=== PATIENT | female | born 1980 | race Caucasian/White ===

== ENCOUNTER 2021-09-15 19:54 | Emergency (ER) | payer BC, SELFPAY ==
--- NOTE | ~2021-09-15 | XR_ITS ---
EXAMINATION: XR lumbar spine 2-3V DATE: 09/15/2021 21:43 INDICATION: Low back pain. TECHNIQUE: 3 views of lumbar spine were obtained. COMPARISON: None. FINDINGS: There is 3 degrees dextrocurvature of lumbar spine. Vertebral body heights are normal. Ther e is mildly decreased disc height at L3-L4 and L4-L5. There are endplate osteophytes at multiple leve ls. The facet joints are unremarkable. Surgical clips in the right upper quadrant are likely from cho lecystectomy. IMPRESSION: 1. Mild lumbar spondylosis. Reviewed, dictated and finalized at location A. IMPRESSION: 1. Mild lumbar spondylosis.
[2021-09-15 20:20] VITALS: BP 123/80; PULSE 67; RESP 18; TEMP 36.4; O2SAT 98
--- NOTE | 2021-09-15 20:53 | ED.BACK ---
HPI - Back Pain/Injury General Chief Complaint: Back Pain/Injury Stated Complaint: back pain Time Seen by Provider: 09/15/21 20:52 History of Present Illness HPI Narrative: 41-year-old female presents to the emergency room for evaluation of acute on chronic low back pain. Patient endorses a nontraumatic and nonradiating lower back pain that is worse with rotation and lateral bend. States she was in the shower earlier today and bent forward and then experienced of the low back pain. Denies taking any pain medications to relieve her symptoms. Reports pain radiates into her lower abdomen. Patient also endorses long history of constipation, states she has not taking her medications to manage her constipation. States her last bowel movement was yesterday, and was typical of her small hard stools. Denies saddle anesthesia Related Data Allergies Allergy/AdvReac Type Severity Reaction Status Date / Time Penicillins Allergy Unknown Hives Verified 09/15/21 20:23 codeine Allergy Hives Verified 09/15/21 20:23 Review of Systems Review of Systems: CONSTITUTIONAL: Denies fever, chills, or sweats. EYES: Denies visual changes, redness, or discharge. ENT: Denies rhinorrhea, congestion, sore throat, or otalgia. CARDIOVASCULAR: Denies chest pain, palpitations, or edema. RESPIRATORY: Denies cough or dyspnea. GASTROINTESTINAL: Reports constipation GENITOURINARY: Denies dysuria or hematuria. SKIN: Denies rash or itching. MUSCULOSKELETAL: Reports low back pain NEUROLOGIC: Denies headache, numbness, dizziness, or weakness. PSYCHIATRIC: Denies anxiety or depression. Exam Narrative: GENERAL: Well-appearing, well-nourished, no physical limitations, and in no acute distress. HEAD: Normocephalic, atraumatic. EYES: Conjunctivae normal, PERRLA and EOMI. CHEST: Clear to auscultation. No respiratory distress. No wheezes rales or rhonchi. No tenderness. HEART: Regular rate and rhythm. No murmur heard. Normal peripheral pulses. ABDOMEN: Soft, nontender, nondistended, normal active bowel sounds. BACK: No CVA tenderness; midline lumbar tenderness that extends over the bilateral thoracolumbar fascia, no step-offs, no bony abnormality; LROM with bilateral rotation and lateral bend EXTREMITIES: Normal range of motion. No edema. No clubbing or cyanosis SKIN: Warm, dry, no rash. No noted wounds NEURO: No focal deficits. Alert and oriented x3. MAEW. CN's II-XI intact bilaterally, normal gait PSYCH: Cooperative. Normal mood and affect. Course Vital Signs Vital signs: Vital Signs Temperature 36.4 C 09/15/21 20:20 Pulse Rate 67 09/15/21 20:20 Respiratory Rate 18 09/15/21 20:20 Blood Pressure 123/80 09/15/21 20:20 Pulse Oximetry 98 09/15/21 20:20 Oxygen Delivery Room Air 09/15/21 20:20 Temperature 36.4 C 09/15/21 20:20 Pulse Rate 67 09/15/21 20:20 Respiratory Rate 18 09/15/21 20:20 Blood Pressure 123/80 09/15/21 20:20 Pulse Oximetry 98 09/15/21 20:20 Oxygen Delivery Room Air 09/15/21 20:20 MDM - Back Pain/Injury Lab Data Labs: Lab Results 09/15/21 Range/Units 22:38 Urine Color Yellow (Yellow) Urine Appearance Slightly cloudy (Clear) Urine pH 5.5 (5.0-9.0) Ur Specific [place] 1.020 (1.001-1.035) Urine Protein Trace (Negative) mg/dL Urine Glucose (UA) Negative (Negative) mg/dL Urine Ketones Negative (Negative) mg/dL Ur Blood (Man) 3+ H (Negative) Urine Nitrate Negative (Negative) Urine Bilirubin Negative (Negative) Urine Urobilinogen 0.2 (<2.0) mg/dL Leukocyte Esterase Rfl 1+ H (Negative) ANNE/UL Urine RBC >75 H (0-2) /hpf Urine WBC 31-50 H /hpf Ur Squamous Epith Cells Occasional (Few) /hpf Urine Bacteria Trace /hpf Urine Mucus Rare /lpf Discharge Plan Discharge Clinical Impression: Strain of lumbar region, UTI (urinary tract infection) Patient Disposition: Home, Self-Care Condition: Stable Instructions: Antibiotic Form, Urinary
[2021-09-15] MEDS: KETOROLAC (*BKC) 60 MG/2 ML VIAL IM (22:32)
[2021-09-15 22:47] LABS: Appearance Urine Slightly Cloudy (Clear); Bilirubin Urine Negative (Negative); Blood Urine 3+ (Negative); Color Urine Yellow (Yellow); Glucose Urine UA Negative (Negative); Ketones Urine Negative (Negative); Leukocyte Esterase Ur 1+ LEU/UL (Negative); Nitrate Urine Negative (Negative); Protein Urine Trace mg/dL (Negative); Urobilinogen Urine 0.2 mg/dL (<2.0); pH Urine 5.5 (5.0-9.0)
[2021-09-15 22:51] LABS: Bacteria Urine Trace /hpf; Mucus Urine Rare /lpf; RBC Urine >75 /hpf (0-2); Squamous Epithelial Cell Urine Occasional /hpf (Few); WBC Urine 31-50 /hpf
[2021-09-15 22:52] LABS: Add Urine Microscopic? YES
[2021-09-15 23:40] VITALS: PULSE 64; RESP 18; O2SAT 98
== END 2021-09-15 23:40 | disposition home or self-care (01) ==
PROVIDERS: Emergency Provider Nurse Practitioner Family; PCP Nurse Practitioner Family
DX: N39.0 Urinary tract infection, site not specified (principal); S39.012A Strain of muscle, fascia and tendon of lower back, initial encounter; X50.9XXA Other and unspecified overexertion or strenuous movements or postures, initial encounter
CPT/HCPCS: 72100; 81001; 87086; 87088; 96372; 99283; J1885

== ENCOUNTER 2022-01-31 02:02 | Emergency (ER) | payer BC, SELFPAY ==
[2022-01-31 02:04] VITALS: BP 160/105; PULSE 93; RESP 18; TEMP 36.5; O2SAT 97
[2022-01-31] MEDS: hydrOXYzine HCL 25 MG TABLET PO (02:33)
--- NOTE | 2022-01-31 02:54 | ED.GENADULT ---
HPI - General Adult General Chief complaint: Unspecified Stated complaint: unspecified Time Seen by Provider: 01/31/22 02:14 Source: patient Mode of arrival: ambulatory Limitations: no limitations History of Present Illness HPI narrative: 38-year-old patient presents today with concerns of right arm pain that she has had for 2 months and right arm shaking that she noted today. Patient arrives with gross tremor to right arm. States it has been there since after she started work. Patient denies any anxiety, stressful situations at home. Patient denies any history of episodes similar to this in the past. Patient does endorse right arm pain for the last 2 months but has not been seen by her primary. Patient does have a history of hypertension but currently not on medications due to her stopping them because of side effects. Related Data Allergies Allergy/AdvReac Type Severity Reaction Status Date / Time Penicillins Allergy Unknown Hives Verified 09/15/21 20:23 codeine Allergy Hives Verified 09/15/21 20:23 Review of Systems Review of Systems: CONSTITUTIONAL: Denies fever, chills, or sweats. EYES: Denies visual changes, redness, or discharge. ENT: Denies rhinorrhea, congestion, sore throat, or otalgia. CARDIOVASCULAR: Denies chest pain, palpitations, or edema. RESPIRATORY: Denies cough or dyspnea. GASTROINTESTINAL: Denies abdominal pain, nausea, vomiting, or diarrhea. GENITOURINARY: Denies dysuria or hematuria. SKIN: Denies rash or itching. MUSCULOSKELETAL: Gross tremor right upper extremity. Facial twitching. Right arm pain 2 months. Denies back pain, joint pain, or myalgia. NEUROLOGIC: Denies headache, numbness, dizziness, or weakness. PSYCHIATRIC: Denies anxiety or depression. Is Exam Narrative: GENERAL: Well-Appearing, Well-Nourished, and in No Acute Distress. HEAD: Normocephalic, Atraumatic. EYES: PERRLA and EOMI. ENT: Nares Clear, No Rhinorrhea or Epistaxis. Mucous Membranes Moist. NECK: Supple. No Adenopathy or Masses. No Carotid Bruits or JVD CHEST: Clear to Auscultation. No Respiratory Distress. No Wheezes Rales or Rhonchi HEART: Regular Rate and Rhythm. No Murmur Levy. Normal Peripheral Pulses. ABDOMEN: Soft, Nontender, Nondistended, Normal Active Bowel Sounds. EXTREMITIES: Normal Range Of Motion. No Edema. Gross Tremors Noted to Right Upper Extremity. SKIN: Warm, Dry, No Rash. NEURO: No Focal Deficits. Alert and Oriented X3. Facial Twitching Noted after Daughter Stated She Noticed It Today. PSYCH: Normal Mood and Affect. Course Reevaluation(s) Reevaluation #1: Patient resting comfortably in bed. No tremors noted at this time. Patient states that she feels better. Will discharge plan follow-up with primary care physician for further management. Date: 01/31/22 Time: 03:25 Vital Signs Vital signs: Vital Signs Temperature 97.7 F 01/31/22 02:04 Pulse Rate 93 01/31/22 02:04 Respiratory Rate 18 01/31/22 02:04 Blood Pressure 160/105 H 01/31/22 02:04 Pulse Oximetry 97 01/31/22 02:04 Oxygen Delivery Room Air 01/31/22 02:04 Temperature 97.7 F 01/31/22 02:04 Pulse Rate 93 01/31/22 02:04 Respiratory Rate 18 01/31/22 02:04 Blood Pressure 160/105 H 01/31/22 02:04 Pulse Oximetry 97 01/31/22 02:04 Oxygen Delivery Room Air 01/31/22 02:04 Medical Decision Making MDM Narrative Medical decision making narrative: 41-year-old female HPI as noted. Patient arrived with complaints of gross tremors to the right upper extremity and some facial twitching that she noted today. Patient states she has had right arm pain for the last 2 months with a gross tremor noted just today. She denied any increased stress or anxiety at home. Tremor noted with movement but after distracting patient for a period of time tremor was gone. But then returned. No other abnormal movements noted until daughter asked about facial twitching then facial twitching was noted. suspect anxiety versus g
[2022-01-31 03:41] VITALS: BP 139/84; PULSE 88; RESP 18; O2SAT 99
== END 2022-01-31 03:42 | disposition home or self-care (01) ==
PROVIDERS: Emergency Provider Nurse Practitioner Family; PCP Nurse Practitioner Family
DX: R25.1 Tremor, unspecified (principal)
CPT/HCPCS: 99283; A9270

== ENCOUNTER 2022-05-12 13:31 | Emergency (ER) | payer BC, SELFPAY ==
[2022-05-12] VITALS (17 sets, daily range): BP systolic 144–169; BP diastolic 74–110; PULSE 60–83; RESP 9–20; TEMP 36.4–36.6; O2SAT 99–100
--- NOTE | ~2022-05-12 | US_ITS ---
EXAMINATION: US pelvic complete DATE: 05/12/2022 20:16 INDICATION: Ovarian torsion, fallopian tube abscess TECHNIQUE: Multiple transabdominal and endovaginal sonographic images of the pelvis were obtained. Tr ansvaginal images were limited by bowel gas. COMPARISON: None. FINDINGS: Uterus: 11.4 x 4.7 x 5.8 cm. Endometrial complex measures 9 mm. Right Ovary: 5.5 x 3.0 x 2.5 cm. Vascular flow is present. Anechoic, avascular 3.2 cm cystic right ov markell lesion, most likely representing a simple ovarian cyst. Left Ovary: 5.0 x 3.3 x 2.3 cm. Vascular flow is present. Hypoechoic circumscribed anechoic structure in the right ovary measuring 2.5 cm, most likely representing a simple ovarian cyst. There is no free fluid in the pelvis. IMPRESSION: 1. The 7.4 cm left ovarian cyst seen in the prior CT was not visualized sonographically, likely parti ally obscured by bowel gas and too high in the pelvis, recommend follow-up CT abdomen and pelvis in 6 -12 months for growth reassessment. 2. The right ovarian lesion seen in the prior CT corresponds to a simple cyst. 3. No sonographic evidence of hydrosalpinx, prior CT findings likely related to adjacent fluid-filled bowel. 4. No sonographic evidence of ovarian torsion. Reviewed, dictated and finalized at location K. IMPRESSION: 1. The 7.4 cm left ovarian cyst seen in the prior CT was not visualized sonogra phically, likely partially obscured by bowel gas and too high in the pelvis, re commend follow-up CT abdomen and pelvis in 6-12 months for growth reassessment. 2. The right ovarian lesion seen in the prior CT corresponds to a simple cyst. 3. No sonographic evidence of hydrosalpinx, prior CT findings likely related to adjacent fluid-filled bowel. 4. No sonographic evidence of ovarian torsion.
--- NOTE | ~2022-05-12 | CT_ITS ---
EXAMINATION: CT abdomen pelvis w con DATE: 05/12/2022 16:42 INDICATION: Diffuse abdominal pain with vomiting and diarrhea TECHNIQUE: Computed tomography (CT) of the abdomen and pelvis was performed with 100 mL Omnipaque-350 intravenous contrast. Automated exposure control and iterative reconstruction technique were employe d. The dose-length product was 948.45 mGy-cm. COMPARISON: None. FINDINGS: Lower thorax: Minimal dependent scar/atelectasis. Liver: Normal. Biliary/Gallbladder: Gallbladder is absent. Minimal prominence of the intrahepatic bile ducts, likely secondary to cholecystectomy Pancreas: No mass or duct dilation. Spleen: Normal. Adrenals:No mass. Kidneys: No mass, stone, or hydronephrosis. GI tract: Distal esophageal and gastric wall edema No small or large bowel dilation. Normal appendix. Mesentery/Peritoneum: No ascites, mass, or free air. Retroperitoneum: No mass. Mild atherosclerotic abdominal aortic and/or arterial calcifications. Pelvis: Decompressed urinary bladder. Normal uterus. Tubular fluid density structure in the left adne xa. 7.4 cm left ovarian cyst. 3.5 cm intermediate density right ovarian lesion. Soft Tissues: Soft tissues and body wall unremarkable. Bones: No acute osseous finding. IMPRESSION: Esophagitis/gastritis. Possible left hydrosalpinx. 7 cm left ovarian cyst. 3.5 cm intermediate densit y right ovarian lesion, possibly a proteinaceous or hemorrhagic cyst. Consider pelvic ultrasound for further evaluation. Reviewed, dictated and finalized at location K. IMPRESSION: Esophagitis/gastritis. Possible left hydrosalpinx. 7 cm left ovarian cyst. 3.5 cm intermediate density right ovarian lesion, possibly a proteinaceous or hemor rhagic cyst. Consider pelvic ultrasound for further evaluation.
--- NOTE | 2022-05-12 14:24 | ED.NAVMDI ---
HPI - Nausea/Vomiting/Diarrhea General Chief complaint: Nausea/Vomiting/Diarrhea Stated complaint: N/V/general pain x3 weeks Time Seen by Provider: 05/12/22 13:57 Source: patient Mode of arrival: ambulatory Limitations: no limitations History of Present Illness HPI Narrative: Patient is 41 years old white female came to the emergency room by private car because of nausea, vomiting and diarrhea for the last 3 weeks. The patient reports vomiting maximum 3 times a day, diarrhea maximum twice a day over the last 3 weeks, associated with general body aches. She denies any fever, chills, urinary symptoms, chest pain, shortness of breath or respiratory symptoms. Patient was seen at [facility], [place], operated by [facility] 3 days ago with a diagnosis of gastroenteritis, was seen by her family physician yesterday and was a scheduled to be seen by green end worker. Patient did not have COVID test 3 weeks ago. Related Data Allergies Allergy/AdvReac Type Severity Reaction Status Date / Time Penicillins Allergy Unknown Hives Verified 09/15/21 20:23 codeine Allergy Hives Verified 09/15/21 20:23 Review of Systems Review of Systems: All systems reviewed & are unremarkable except as noted in HPI and below Exam Narrative: General appearance: Well-developed, well-nourished Skin: Normal color Head: Normocephalic, nontraumatic Eyes: Clear conjunctiva ENT: Oropharynx normal, ears normal, nose normal Neck: Supple, nontender Chest and respiratory: Airway patent, no respiratory distress, no accessory muscle use Heart: Regular rate/rhythm Abdomen: Soft, diffuse tenderness, no guarding or rebound, no organomegaly, quiet bowel sounds Vascular: Normal peripheral pulses, normal capillary refill. Musculoskeletal: Normal range of motion, nontender back Neurologic: Alert and oriented ?3, [employer]ER is normal as tested, no gross motor deficit Course Reevaluation(s) Reevaluation #1: No new changes. Patient was notified about the results of the work-up today and the need to follow-up with green end worker. Agreed Date: 05/12/22 Time: 17:00 Reevaluation #2: Patient care turned over to Dr. caal at shift change, awaiting pelvic ultrasound, disposition. Patient been resting quietly in the emergency room without any issues or problems. Date: 05/12/22 Time: 19:32 Vital Signs Vital signs: Vital Signs Temperature 36.4 C 05/12/22 13:45 Pulse Rate 83 05/12/22 13:45 Respiratory Rate 19 05/12/22 13:45 Blood Pressure 144/74 H 05/12/22 13:45 Pulse Oximetry 100 05/12/22 13:45 Oxygen Delivery Room Air 05/12/22 13:45 Temperature 36.6 C 05/12/22 13:50 Pulse Rate 62 05/12/22 17:47 Respiratory Rate 18 05/12/22 17:47 Blood Pressure 169/110 H 05/12/22 17:47 Pulse Oximetry 100 05/12/22 17:47 Oxygen Delivery Room Air 05/12/22 13:50 MDM - Nausea/Vomiting/Diarrhea MDM Narrative Medical decision making narrative: Patient presents with nausea, vomiting and diarrhea over the last 3 weeks, physical examination showed diffuse abdominal tenderness without guarding or rebound. Patient does not have any fever or chills. Patient lives with asymptomatic family. Differential diagnosis include viral gastroenteritis, cholecystitis, pancreatitis, gastritis, stress related symptoms. Blood work-up showed no significant abnormality to explain patient condition, urine analysis came back within normal limit, CT abdomen and pelvis showed esophagitis/gastritis. The possible left hydrosalpinx. 7 cm left ovarian cyst. 3.5 cm intermediate density right ovarian lesion, possibly a proteinaceous or hemorrhagic cyst. Consider pelvic ultrasound for further evaluation.. Differential Diagnosis Dif
[2022-05-12 14:27] LABS: Basophils Absolute Auto 0.1 K/mm3 (0.0-0.1); Basophils Percent Auto 0.8 % (0.2-1.2); Eosinophils Absolute Auto 0.2 K/mm3 (0-0.3); Eosinophils Percent Auto 2.7 % (0-4.4); Hematocrit 32.9 % (37.0-47.0); Hemoglobin 10.5 g/dL (12.0-15.0); Immature Granulocyte Absolute 0.02 K/mm3 (0.00-0.031); Immature Granulocyte Percent A 0.2 % (0-0.5); Lymphocytes Absolute Auto 2.24 K/mm3 (0.9-3.2); Lymphocytes Percent Auto 26.6 % (18.3-44.2); Mean Corpuscular HGB Conc 31.9 g/dl (32-36); Mean Corpuscular Hemoglobin 26.1 pg (26-34); Mean Corpuscular Volume 81.8 fl (80-100); Mean Platelet Volume 10.1 fl (7.4-10.4); Monocytes Absolute Auto 0.6 K/mm3 (0.1-0.6); Monocytes Percent Auto 7.6 % (2.6-8.5); Neutrophils Absolute Auto 5.2 K/mm3 (1.3-6.7); Neutrophils Percent Auto 62.1 % (45.5-73.1); Platelet Count Result 406 k/mm3 (150-375); Red Blood Count 4.02 M/mm3 (4.2-5.4); White Blood Count 8.4 K/mm3 (4.5-10.0)
[2022-05-12 14:37] LABS: Alanine Aminotransferase 16 U/L (6-35); Albumin Level 3.9 g/dL (3.5-5.1); Alkaline Phosphatase 86 U/L (38-126); Anion Gap 5 mmol/L (8-16); Aspartate Amino Transferase 16 U/L (14-36); Bilirubin,Total 0.4 mg/dL (0.2-1.3); Blood Urea Nitrogen 8 mg/dL (7-17); Calcium 8.9 mg/dL (8.4-10.2); Carbon Dioxide 24 mmol/L (22-30); Chloride 108 mmol/L (98-107); Estimated CRCL calculation 130 ml/min; Estimated Glomerular Filt Rate > 60; Glucose 102 mg/dL (65-110); Lipase 29 U/L (23-300); Potassium 3.6 mmol/L (3.4-5.0); Sodium 137 mmol/L (137-145)
[2022-05-12] MEDS: LACTATED RINGERS 1,000 ML 999 ML IV CONT (14:38)
[2022-05-12] MEDS: ONDANSETRON INJ 4 MG/2 ML VIAL IV PUSH (14:39)
[2022-05-12] MEDS: BELLADONNA ALK/PHENOB ELIX 10 ML, MAG HYDROX/ALUMINUM HYD/SIMETH 30 ML, LIDOCAINE HCL 2... PO (14:44)
[2022-05-12 15:23] LABS: Appearance Urine Clear (Clear); Bilirubin Urine Negative (Negative); Blood Urine Negative (Negative); Color Urine Yellow (Yellow); Glucose Urine UA Negative (Negative); Ketones Urine Trace mg/dL (Negative); Leukocyte Esterase Ur Negative LEU/UL (Negative); Nitrate Urine Negative (Negative); Protein Urine Negative (Negative); Specific Grav Ur 1.021 (1.001-1.035); Urobilinogen Urine 0.2 mg/dL (<2.0); pH Urine 6.5 (5.0-9.0)
[2022-05-12 15:41] LABS: Add Urine Microscopic? NO
== END 2022-05-12 21:35 | disposition home or self-care (01) ==
PROVIDERS: Emergency Medicine; Emergency Provider Emergency Medicine; PCP Nurse Practitioner Family
DX: N83.202 Unspecified ovarian cyst, left side (principal); R10.9 Unspecified abdominal pain
CPT/HCPCS: 36415; 74177; 76856; 80053; 81003; 81025; 83690; 85025; 96361; 96374; 99284; A9270; J2405; J7120; Q9967